=== PATIENT | male | born 1970 | race Hispanic/Latino ===

== ENCOUNTER 2018-02-23 15:58 | Emergency (ER) | payer SELFPAY ==
[~2018-02-23 15:58] MED LIST: Iopamidol 370 76% 100 ML VIAL ONE
[2018-02-23] MEDS ORDERED: Morphine 4 MG/ML VIAL ONE (16:20)
[2018-02-23] MEDS ORDERED: Ondansetron PF 4 MG/2 ML Vial ONE (16:34)
--- NOTE | 2018-02-23 17:02 | CT ---
CT CHEST WITH IV CONTRAST CT ABDOMEN AND PELVIS WITH IV CONTRAST CT THORACIC SPINE NONCONTRAST CT LUMBAR SPINE NONCONTRAST: Date: 02/23/18 HISTORY: Fall. Chest and abdomen injury. Back injury. FINDINGS: Mild atelectasis at each lung base. Nondisplaced fracture at the posterior aspect of the left fourth rib. No pneumothorax or mediastinal hematoma. The liver, spleen, kidneys, adrenal glands, and pancreas are within normal limits. No free fluid or f ree air. Urinary bladder is intact. Fat protrudes into a left inguinal hernia that does not contain b owel. Mild degenerative changes throughout the thoracolumbar spine. Vertebral body height and alignment are intact. IMPRESSION: Nondisplaced left posterior fourth rib fracture. No pneumothorax or other acute traumatic injury is d emonstrated. POS: [facility]
[2018-02-23 17:34] LABS: #Basophils 0.1 thou/uL (0.0-0.2); #Eosinphils 0.1 thou/uL (0.0-0.7); #Lymphocytes 1.2 thou/uL (1.20-3.40); #Monocytes 0.6 thou/uL (0.11-0.59); #Neutrophils 10.3 thou/uL (1.40-6.50); %Basophils 0.5 % (0.0-1.0); %Eosinophils 0.4 % (0.0-10.0); %Lymphocytes 9.6 % (21.0-51.0); %Monocytes 4.9 % (0.0-10.0); %Neutrophils 84.6 % (42.0-75.0); Hemoglobin 14.8 g/dL (14.0-18.0); Mean Corpuscular HGB CONC 33.7 g/dL (32.0-36.0); Mean Corpuscular Hemoglobin 30.7 pg (27.0-31.0); Mean Corpuscular Volume 91.1 fL (78.0-98.0); Mean Platelet Volume 6.6 fL (7.4-10.4); Platelet Count 268 thou/uL (130-400); RBC Distribution Width 11.7 % (11.5-14.5); Red Blood Cell (RBC) Count 4.81 mill/uL (4.70-6.10); White Blood Cell (WBC) Count 12.1 thou/uL (4.8-10.8)
[2018-02-23 17:40] LABS: Prothrombin Time 13.4 SEC (12.0-14.7)
[2018-02-23 17:56] LABS: ALT (SGPT) 49 U/L (8-55); AST (SGOT) 34 U/L (5-34); Albumin 4.1 g/dL (3.5-5.0); Alkaline Phosphatase 72 U/L (40-150); Anion Gap 9 mmol/L (10-20); BUN (Urea Nitrogen) 22 mg/dL (8.9-20.6); Bilirubin, Total 0.6 mg/dL (0.2-1.2); Calc. Creatinine Clearance 0 mL/min (70-130); Calcium 8.8 mg/dL (7.8-10.44); Carbon Dioxide 27 mmol/L (22-29); Chloride 110 mmol/L (98-107); Estimated GFR-MDRD 79; Globulin 2.9 g/dL (2.4-3.5); Glucose 103 mg/dL (70-105); Potassium 4.6 mmol/L (3.5-5.1); Sodium 141 mmol/L (136-145)
[2018-02-23] MEDS ORDERED: Ketorolac Tromethamine 30 MG/ML VIAL ONE (18:34)
== END 2018-02-23 19:16 | disposition home or self-care (01) ==
LOC: ERS 15:58
DX: S22.32XA Fracture of one rib, left side, initial encounter for closed fracture (principal); W17.89XA Other fall from one level to another, initial encounter
CPT/HCPCS: 36415; 71260; 74177; 80053; 85025; 85610; 85730; 96361; 96374; 96375; J1885; J2270; J2405